=== PATIENT | female | born 1990 | race Caucasian/White ===

== ENCOUNTER 2019-11-05 16:01 | Emergency (ER) | payer OTHER ==
[~2019-11-05] VITALS: Ht 152.4 cm; Wt 79.8 kg
[2019-11-05 16:21] VITALS: Ht 152.4 cm; Wt 79.8 kg
[2019-11-05 17:39] VITALS: BP 107/70
== END 2019-11-05 17:39 | disposition home or self-care (01) ==
LOC: ED 16:01
DX: N61.0 Mastitis without abscess (principal)